=== PATIENT | female | born 1985 | race African-American/Black ===

== ENCOUNTER 2021-10-22 12:13 | Emergency (ER) | payer OTHER ==
[~2021-10-22] VITALS: Ht 162.6 cm; Wt 73.9 kg
== END 2021-10-22 13:39 | disposition home or self-care (01) ==
LOC: ER 12:13 → EDBD 12:22 → ER 12:22
DX: T59.891A Toxic effect of other specified gases, fumes and vapors, accidental (unintentional), initial encounter (principal); Y92.813 Airplane as the place of occurrence of the external cause; Z91.013 Allergy to seafood